=== PATIENT | male | born 1960 | race Caucasian/White ===

== ENCOUNTER 2020-12-21 15:22 | Inpatient (IN) | payer MEDICARE, OTHER ==
[~2020-12-21] VITALS: Ht 172.7 cm; Wt 72.6 kg
[2020-12-21] MEDS ORDERED: ZIPRASIDONE 20 MG VIAL IM ONE (15:39)
[2020-12-21] MEDS ORDERED: HALOPERIDOL LACTATE 5 MG/ML VIAL ONE (15:39)
[2020-12-21] MEDS ORDERED: HALOPERIDOL LACTATE 5 MG/ML VIAL IV ONE (15:45)
[2020-12-21] MEDS: ZIPRASIDONE 20 MG VIAL IM PRN (15:52)
[2020-12-21] MEDS ORDERED: MIDAZOLAM HCL 2 MG/2 ML VIAL IV STA (17:41)
[2020-12-21 18:04] LABS: BASOPHILS % 0.3 % (0.0-1.0); EOSINOPHILS # (AUTO) 0.1 (0.0-0.4); EOSINOPHILS % 0.5 % (0.0-6.0); HEMATOCRIT 42.1 % (38.2-49.6); HEMOGLOBIN 14.2 g/dL (14.0-18.0); LYMPHOCYTES # (AUTO) 1.3 (1.0-3.2); LYMPHOCYTES % 13.9 % (18.0-39.1); MEAN CORPUSCULAR HEMOGLOBIN 30.9 pg (28-32); MEAN CORPUSCULAR HGB CONC 33.7 g/dL (31-35); MEAN CORPUSCULAR VOLUME 91.7 fL (81-99); MONOCYTES # (AUTO) 1.1 (0.2-0.8); MONOCYTES % 11.5 % (4.4-11.3); NEUTROPHILS % 73.5 % (38.7-80.0); PLATELET COUNT 153 x10e3/uL (140-360); RED BLOOD COUNT 4.59 x10e6/uL (4.3-5.7); RED CELL DISTRIBUTION WIDTH 12.9 % (11.7-14.4)
[2020-12-21 18:22] LABS: ALANINE AMINOTRANSFERASE 25 IU/L (0-55); ALBUMIN/GLOBULIN RATIO 1.1 (0.8-2.0); ALKALINE PHOSPHATASE 76 IU/L (40-150); ANION GAP 18.1 mmol/L (8-16); BLOOD UREA NITROGEN 13 mg/dL (7-26); BUN/CREATININE RATIO 18 (6-25); CALCIUM 8.9 mg/dL (8.4-10.2); CARBON DIOXIDE 19 mmol/L (22-29); CHLORIDE 107 mmol/L (98-107); CREATINE KINASE 456 IU/L (30-200); CREATININE, SERUM 0.74 mg/dL (0.72-1.25); EST GLOMERULAR FILTRATION RATE > 60 ML/MIN (60-); GLUCOSE 95 mg/dL (74-118); POTASSIUM 5.1 mmol/L (3.5-5.1); SODIUM 139 mmol/L (136-145)
[2020-12-21 18:27] LABS: SALICYLATE < 5.0 mg/dL (0-30)
[2020-12-21] MEDS ORDERED: LACTATED RINGER'S 1,000 ML INJ ONE (18:45)
[2020-12-21 18:47] LABS: CLARITY,URINE CLEAR (CLEAR); COLOR,URINE YELLOW (YELLOW)
[2020-12-21 18:48] LABS: AMPHETAMINES SCREEN,URINE NEGATIVE (NEGATIVE); BENZODIAZEPINES SCREEN,URINE NEGATIVE (NEGATIVE); KETONES,URINE NEGATIVE (NEGATIVE); LEUKOCYTE ESTERASE ,URINE NEGATIVE (NEGATIVE); NITRITE,URINE NEGATIVE (NEGATIVE); PHENCYCLIDINE SCREEN,URINE NEGATIVE (NEGATIVE); PROTEIN,URINE DIPSTICK NEGATIVE (NEGATIVE)
[2020-12-21 18:53] LABS: RBC,URINE 0-5 /HPF (0-5); WBC,URINE (MAN) 0-5 /HPF (0-5)
[2020-12-21] MEDS ORDERED: DIPHENHYDRAMINE HCL INJ 50 MG/ML VIAL ONE (19:57)
[2020-12-21] MEDS ORDERED: DIPHENHYDRAMINE HCL INJ 50 MG/ML VIAL IV ONE (20:00)
[2020-12-22] MEDS: ZIPRASIDONE 20 MG VIAL IM PRN (09:01)
[2020-12-22] MEDS ORDERED: ZIPRASIDONE 20 MG VIAL IM NR (09:30)
[2020-12-22] MEDS ORDERED: POTASSIUM CHLORIDE 20 MEQ TAB CR PO PRN (12:00)
[2020-12-22] MEDS ORDERED: CHLORASEPTIC SPRAY 177 ML BTL MM PRN (12:00)
[2020-12-22] MEDS ORDERED: ALBUTEROL/IPRATROPIUM 3 ML NEB NEB PRN (12:00)
[2020-12-22] MEDS ORDERED: HYDRALAZINE HCL 20 MG/ML VIAL IV PRN (12:00)
[2020-12-22] MEDS ORDERED: LIDOCAINE 4% PATCH TP PRN (12:00)
[2020-12-22] MEDS ORDERED: DEXTROSE 50% SYRINGE 50 ML IV PRN (12:00)
[2020-12-22] MEDS ORDERED: DOCUSATE SODIUM 100 MG CAP PO PRN (12:00)
[2020-12-22] MEDS ORDERED: ACETAMINOPHEN 325 MG TAB PO PRN (12:00)
[2020-12-22 15:00] VITALS: BP 109/80
[2020-12-22 16:00] VITALS: BP 109/80
[2020-12-22] MEDS: ENOXAPARIN SOD INJ 40 MG/0.4 ML SYR SC SCH (17:03)
[2020-12-22] MEDS: MELATONIN 5 MG TABLET PO PRN (20:38)
[2020-12-22] MEDS: QUETIAPINE FUMARATE 25 MG TAB PO PRN (20:38)
[2020-12-22] MEDS: DIPHENHYDRAMINE HCL 25 MG CAP PO PRN (20:38)
[2020-12-23 06:17] LABS: BASOPHILS % 0.3 % (0.0-1.0); EOSINOPHILS # (AUTO) 0.1 (0.0-0.4); EOSINOPHILS % 1.4 % (0.0-6.0); HEMATOCRIT 38.4 % (38.2-49.6); LYMPHOCYTES # (AUTO) 1.8 (1.0-3.2); LYMPHOCYTES % 27.6 % (18.0-39.1); MEAN CORPUSCULAR HEMOGLOBIN 30.4 pg (28-32); MEAN CORPUSCULAR HGB CONC 33.9 g/dL (31-35); MEAN CORPUSCULAR VOLUME 89.7 fL (81-99); MONOCYTES # (AUTO) 1.2 (0.2-0.8); MONOCYTES % 18.2 % (4.4-11.3); NEUTROPHILS # (AUTO) 3.5 (2.1-6.9); NEUTROPHILS % 52.2 % (38.7-80.0); PLATELET COUNT 223 x10e3/uL (140-360); RED BLOOD COUNT 4.28 x10e6/uL (4.3-5.7); RED CELL DISTRIBUTION WIDTH 13.1 % (11.7-14.4)
[2020-12-23 06:38] LABS: ANION GAP 15.7 mmol/L (8-16); BLOOD UREA NITROGEN 12 mg/dL (7-26); BUN/CREATININE RATIO 16 (6-25); CALCIUM 8.8 mg/dL (8.4-10.2); CARBON DIOXIDE 21 mmol/L (22-29); CHLORIDE 106 mmol/L (98-107); CREATININE, SERUM 0.75 mg/dL (0.72-1.25); EST GLOMERULAR FILTRATION RATE > 60 ML/MIN (60-); GLUCOSE 90 mg/dL (74-118); POTASSIUM 3.7 mmol/L (3.5-5.1); SODIUM 139 mmol/L (136-145)
[2020-12-23 07:30] VITALS: BP 100/65
[2020-12-23] MEDS: PANTOPRAZOLE SOD 40 MG TABEC PO SCH (09:11)
[2020-12-23 09:16] VITALS: BP 100/65
[2020-12-23] MEDS: QUETIAPINE FUMARATE 25 MG TAB PO PRN ×2 (12:27→20:40)
[2020-12-23] MEDS: ENOXAPARIN SOD INJ 40 MG/0.4 ML SYR SC SCH (17:17)
[2020-12-23 19:28] VITALS: BP 118/102
[2020-12-23] MEDS: DIPHENHYDRAMINE HCL 25 MG CAP PO PRN (20:40)
[2020-12-23] MEDS: MELATONIN 5 MG TABLET PO PRN (20:40)
[2020-12-23 23:29] VITALS: BP 87/63
[2020-12-24 04:11] VITALS: BP 93/61
[2020-12-24] MEDS: PANTOPRAZOLE SOD 40 MG TABEC PO SCH (08:53)
[2020-12-24 12:49] VITALS: BP 159/81
[2020-12-24] MEDS: QUETIAPINE FUMARATE 25 MG TAB PO PRN ×2 (13:29→18:11)
[2020-12-24] MEDS: OLANZAPINE 5 MG TAB PO SCH ×2 (14:30→20:22)
[2020-12-24] MEDS: ENOXAPARIN SOD INJ 40 MG/0.4 ML SYR SC SCH (16:05)
[2020-12-24] MEDS: DIVALPROEX SODIUM 125 MG TABDR...ER PO SCH (20:22)
[2020-12-24] MEDS: MELATONIN 5 MG TABLET PO PRN (20:22)
[2020-12-24] MEDS ORDERED: OLANZAPINE 5 MG TAB PO SCH (21:00)
[2020-12-25 08:23] VITALS: BP 128/74
[2020-12-25] MEDS: DIVALPROEX SODIUM 125 MG TABDR...ER PO SCH (08:53)
[2020-12-25] MEDS: PANTOPRAZOLE SOD 40 MG TABEC PO SCH (08:53)
[2020-12-25] MEDS: DIPHENHYDRAMINE HCL 25 MG CAP PO PRN (08:53)
[2020-12-25 08:59] VITALS: BP 128/74
[2020-12-25] MEDS: QUETIAPINE FUMARATE 25 MG TAB PO PRN (12:56)
== END 2020-12-25 13:54 | DRG 885 ==
LOC: ER 16:21 → ERHOLD 12-22 05:57 → IMCU 12-22 07:45 → OBSVTOIN 12-24 08:32
PROVIDERS: ADMIT Internal Medicine; ATTEND Internal Medicine
PROC: 8E0ZXY6 Isolation (ICD-10-PCS; principal; 2020-12-24)
DX: F20.9 Schizophrenia, unspecified (principal); U07.1 COVID-19; G93.40 Encephalopathy, unspecified; F03.91 Unspecified dementia, unspecified severity, with behavioral disturbance; F03.90 Unspecified dementia, unspecified severity, without behavioral disturbance, psychotic disturbance, mood disturbance, and anxiety; G93.89 Other specified disorders of brain; Z79.899 Other long term (current) drug therapy; G47.00 Insomnia, unspecified
CPT/HCPCS: 36415; 70450; 80048; 80053; 80307; 80320; 80329; 81001; 82140; 82550; 82553; 84484; 85025; 99284; G0378; J1200; J1630; J1650; J2250; J3486; J7121; U0002

== ENCOUNTER 2020-12-25 20:55 | Inpatient (IN) | payer MEDICARE, OTHER ==
[~2020-12-25] VITALS: Ht 172.7 cm; Wt 67.6 kg
[2020-12-25 21:45] VITALS: BP 104/53
[2020-12-25] MEDS ORDERED: DOCUSATE SODIUM 100 MG CAP PO PRN (21:45)
[2020-12-25] MEDS ORDERED: POTASSIUM CHLORIDE 20 MEQ TAB CR PO PRN (21:45)
[2020-12-25] MEDS ORDERED: CHLORASEPTIC SPRAY 177 ML BTL MM PRN (21:45)
[2020-12-25] MEDS ORDERED: HYDRALAZINE HCL 20 MG/ML VIAL IV PRN (21:45)
[2020-12-25] MEDS ORDERED: LIDOCAINE 4% PATCH TP PRN (21:45)
[2020-12-25] MEDS ORDERED: ALBUTEROL/IPRATROPIUM 3 ML NEB NEB PRN (21:45)
[2020-12-25 22:00] VITALS: BP 104/53
[2020-12-25] MEDS ORDERED: OLANZAPINE 5 MG TAB PO SCH (22:00)
[2020-12-25] MEDS: MELATONIN 5 MG TABLET PO PRN (22:11)
[2020-12-25] MEDS: DIPHENHYDRAMINE HCL 25 MG CAP PO PRN (22:11)
[2020-12-25] MEDS: DIVALPROEX SODIUM 250 MG TAB...DR PO SCH (22:11)
[2020-12-25] MEDS: QUETIAPINE FUMARATE 25 MG TAB PO PRN (22:12)
[2020-12-25] MEDS: ACETAMINOPHEN 325 MG TAB PO PRN (23:19)
[2020-12-26 09:00] VITALS: BP 104/53
[2020-12-26 09:16] VITALS: BP 89/59
[2020-12-26] MEDS: QUETIAPINE FUMARATE 25 MG TAB PO PRN ×2 (10:29→20:30)
[2020-12-26] MEDS: DIVALPROEX SODIUM 250 MG TAB...DR PO SCH ×2 (10:29→20:30)
[2020-12-26] MEDS: PANTOPRAZOLE SOD 40 MG TABEC PO SCH (10:29)
[2020-12-26 12:30] VITALS: BP 114/81
[2020-12-26] MEDS: OLANZAPINE 5 MG TAB PO SCH ×2 (16:17→20:26)
[2020-12-26 16:57] VITALS: BP 135/97
[2020-12-26] MEDS: ENOXAPARIN SOD INJ 40 MG/0.4 ML SYR SC SCH (17:30)
[2020-12-26 20:00] VITALS: BP 110/75
[2020-12-26] MEDS: ACETAMINOPHEN 325 MG TAB PO PRN (20:29)
[2020-12-26 20:49] VITALS: BP 110/75
[2020-12-26] MEDS ORDERED: OLANZAPINE 5 MG TAB PO SCH (21:00)
[2020-12-27] MEDS: PANTOPRAZOLE SOD 40 MG TABEC PO SCH (07:30)
[2020-12-27] MEDS: DIVALPROEX SODIUM 250 MG TAB...DR PO SCH ×2 (09:31→19:52)
[2020-12-27] MEDS: MEMANTINE 10 MG TAB PO SCH (09:31)
[2020-12-27] MEDS: OLANZAPINE 5 MG TAB PO SCH ×3 (09:31→21:32)
[2020-12-27] MEDS: QUETIAPINE FUMARATE 25 MG TAB PO PRN (15:57)
[2020-12-27] MEDS: ENOXAPARIN SOD INJ 40 MG/0.4 ML SYR SC SCH (16:11)
[2020-12-27] MEDS: DIPHENHYDRAMINE HCL 25 MG CAP PO PRN ×2 (19:52)
[2020-12-27 21:27] VITALS: BP 110/75
[2020-12-28] MEDS: MELATONIN 5 MG TABLET PO PRN (00:17)
[2020-12-28] MEDS: QUETIAPINE FUMARATE 25 MG TAB PO PRN ×2 (00:17→16:02)
[2020-12-28] MEDS: PANTOPRAZOLE SOD 40 MG TABEC PO SCH (07:30)
[2020-12-28] MEDS: DIVALPROEX SODIUM 250 MG TAB...DR PO SCH (08:51)
[2020-12-28] MEDS: MEMANTINE 10 MG TAB PO SCH (08:51)
[2020-12-28] MEDS: OLANZAPINE 5 MG TAB PO SCH (08:51)
[2020-12-28] MEDS: DIPHENHYDRAMINE HCL 25 MG CAP PO PRN (16:02)
== END 2020-12-28 16:05 | DRG 56 ==
LOC: IMCU 20:55
PROVIDERS: ADMIT Internal Medicine; ATTEND Internal Medicine
PROC: 8E0ZXY6 Isolation (ICD-10-PCS; principal; 2020-12-25)
DX: G31.09 Other frontotemporal neurocognitive disorder (principal); U07.1 COVID-19; F02.81 Dementia in other diseases classified elsewhere, unspecified severity, with behavioral disturbance; F20.9 Schizophrenia, unspecified; G47.00 Insomnia, unspecified; R56.9 Unspecified convulsions
CPT/HCPCS: J1650; U0002